=== PATIENT | male | born 1965 | race Caucasian/White ===

== ENCOUNTER 2025-01-29 13:58 | Emergency (ER) | payer MEDICAID ==
[~2025-01-29] VITALS: Ht 177.8 cm; Wt 78.0 kg
[2025-01-29 14:00] VITALS: O2SAT 98
[2025-01-29 14:28] LABS: BASOPHILS % 1.1 % (0.0-2.0); EOSINOPHILS % 1.5 % (0.0-5.0); HEMOGLOBIN. 13.5 g/dL (14.0-18.0); LYMPHOCYTES % 19.1 % (20.0-50.0); MEAN CORPUSCULAR HEMOGLOBIN 31.8 pg (28.0-32.0); MEAN CORPUSCULAR HGB CONC 33.6 g/dL (31.0-37.0); MEAN CORPUSCULAR VOLUME 94.6 fL (80.0-94.0); MEAN PLATELET VOLUME 11.3 fl (7.4-10.4); MONOCYTES % 6.5 % (2.0-8.0); NEUTROPHILS % 71.8 % (40.0-76.0); PLATELET 153 x1000/uL (130-400); RED BLOOD CELL COUNT 4.23 mill/uL (4.7-6.1); RED CELL DISTRIBUTION WIDTH 14.8 % (11.6-14.6); WHITE BLOOD COUNT 9.2 x1000/uL (4.5-11.0)
[2025-01-29 14:35] LABS: CHLORIDE 93 mEq/L (98-107); POTASSIUM 3.4 mEq/L (3.5-5.1)
[2025-01-29 14:36] LABS: CALCIUM 8.5 mg/dL (8.7-10.4); CARBON DIOXIDE 28 mEq/L (21-32)
[2025-01-29] MEDS: IBUPROFEN 600MG TABLET PO STA (14:37)
[2025-01-29 14:41] LABS: CREATININE 0.8 mg/dL (0.6-1.3); GLUCOSE 157 mg/dL (70-105); UREA NITROGEN BLOOD 10 mg/dL (9-23)
[2025-01-29 14:42] LABS: ETHANOL BLOOD 239 mg/dL (<10)
[2025-01-29 14:50] LABS: SODIUM 134 mEq/L (136-145); TROPONIN I HIGH SENSITIVITY < 4 ng/L (3.0-53)
[2025-01-29] MEDS: CHLORDIAZEPOXIDE 25MG CAPSULE PO ONE (15:35)
[2025-01-29 15:36] LABS: *AMPHETAMINES SCREEN URINE NEGATIVE (NEGATIVE); *BARBITURATES SCREEN URINE NEGATIVE (NEGATIVE); *BENZODIAZEPINES SCREEN URINE NEGATIVE (NEGATIVE); *COCAINE SCREEN URINE NEGATIVE (NEGATIVE); METHADONE URINE SCREEN NEGATIVE (NEGATIVE); OPIATES URINE SCREEN NEGATIVE (NEGATIVE); PHENCYCLIDINE URINE SCREEN NEGATIVE (NEGATIVE)
[2025-01-29 15:37] LABS: CANNABINOID URINE SCREEN NEGATIVE (NEGATIVE); ECSTASY MDMA SCREEN URINE NEGATIVE (NEGATIVE)
[2025-01-29 19:12] VITALS: BP 137/84; PULSE 98; RESP 16; TEMP 36.7; O2SAT 97
== END 2025-01-29 19:17 | disposition home or self-care (01) ==
LOC: ER 13:58
DX: R07.89 Other chest pain (principal); F10.229 Alcohol dependence with intoxication, unspecified; E11.9 Type 2 diabetes mellitus without complications; I10 Essential (primary) hypertension; F32.A Depression, unspecified; Y90.7 Blood alcohol level of 200-239 mg/100 ml
CPT/HCPCS: 80305; 80048; 80320; 85025; 84484; 36415; 71045; 93005; 99285; Z7610 ×2; A4606; G0480